=== PATIENT | female | born 1955 | race Caucasian/White ===

== ENCOUNTER 2016-11-07 13:53 | Day surgery (SDC) | payer BC ==
[~2016-11-07] VITALS: Ht 165.1 cm; Wt 81.6 kg
[~2016-11-07 13:53] MED LIST: CYMBALTA30 MG PO; LYRICA150 MG PO; ZOCOR20 M1 PO
[2016-11-07 14:14] VITALS: BP 136/75
== END 2016-11-07 14:30 | disposition home or self-care (01) | DRG 951 ==
LOC: ENDO 13:53
PROVIDERS: ATTEND Internal Medicine Gastroenterology
DX: Z12.11 Encounter for screening for malignant neoplasm of colon (principal); K21.9 Gastro-esophageal reflux disease without esophagitis; E78.00 Pure hypercholesterolemia, unspecified; M79.7 Fibromyalgia; Z53.09 Procedure and treatment not carried out because of other contraindication

== ENCOUNTER 2018-02-19 12:15 | Day surgery (SDC) | payer BC ==
[~2018-02-19] VITALS: Ht 165.1 cm; Wt 78.0 kg
[~2018-02-19 12:15] MED LIST changes: +PRILOSEC20 MG PO
[2018-02-19 16:52] VITALS: BP 95/58
== END 2018-02-19 17:05 | disposition home or self-care (01) | DRG 392 ==
LOC: ENDO 12:15 → ORM 19:10
PROVIDERS: ATTEND Internal Medicine Gastroenterology
PROC: 0DB78ZX Excision of Stomach, Pylorus, Via Natural or Artificial Opening Endoscopic, Diagnostic (ICD-10-PCS; principal; 2018-02-19)
PROC: 0DBP8ZX Excision of Rectum, Via Natural or Artificial Opening Endoscopic, Diagnostic (ICD-10-PCS; 2018-02-19)
PROC: 0DBN8ZX Excision of Sigmoid Colon, Via Natural or Artificial Opening Endoscopic, Diagnostic (ICD-10-PCS; 2018-02-19)
DX: K21.9 Gastro-esophageal reflux disease without esophagitis (principal); K31.9 Disease of stomach and duodenum, unspecified; K29.70 Gastritis, unspecified, without bleeding; K29.80 Duodenitis without bleeding; Z12.11 Encounter for screening for malignant neoplasm of colon; K64.4 Residual hemorrhoidal skin tags; K63.5 Polyp of colon; K62.1 Rectal polyp; K57.30 Diverticulosis of large intestine without perforation or abscess without bleeding; D12.8 Benign neoplasm of rectum; M79.7 Fibromyalgia; E78.00 Pure hypercholesterolemia, unspecified; Z79.899 Other long term (current) drug therapy

== ENCOUNTER → 2018-08-13 | Outpatient (REF) | payer OTHER | END | disposition home or self-care (01) | DRG 642 | LOC: LAB 12:15 | PROVIDERS: ATTEND Nurse Practitioner | DX: E78.2 Mixed hyperlipidemia (principal); R73.03 Prediabetes ==

== ENCOUNTER → 2018-08-25 | Outpatient (REF) | payer OTHER | END | disposition home or self-care (01) | DRG 951 | LOC: MAMMO 14:17 | PROVIDERS: ATTEND Nurse Practitioner | DX: Z12.31 Encounter for screening mammogram for malignant neoplasm of breast (principal); N95.1 Menopausal and female climacteric states ==